=== PATIENT | female | born 1985 | race Two or more races ===

== ENCOUNTER 2021-11-26 13:30 | Inpatient (IN) | payer OTHER ==
[~2021-11-26] VITALS: Ht 162.6 cm; Wt 79.8 kg
[2021-11-26] MEDS ORDERED: CHILDREN'S ASPI81 MG PO (15:18)
[2021-11-26] MEDS ORDERED: PRENATAL TABLE1 EAC3 PO (15:19)
== END 2021-11-27 09:20 | disposition home or self-care (01) | DRG 831 ==
LOC: LDR 13:30
PROVIDERS: ADMIT Obstetrics & Gynecology Maternal & Fetal Medicine; ATTEND Obstetrics & Gynecology Maternal & Fetal Medicine
PROC: 4A1HXCZ Monitoring of Products of Conception, Cardiac Rate, External Approach (ICD-10-PCS; principal; 2021-11-26)
PROC: BY4FZZZ Ultrasonography of Third Trimester, Single Fetus (ICD-10-PCS; 2021-11-26)
DX: O98.513 Other viral diseases complicating pregnancy, third trimester (principal); U07.1 COVID-19; O46.8X3 Other antepartum hemorrhage, third trimester; Z3A.33 33 weeks gestation of pregnancy

== ENCOUNTER 2021-12-13 12:23 | Outpatient (CLI) | payer OTHER ==
[~2021-12-13 12:23] MED LIST: CHILDREN'S ASPI81 MG PO; PRENATAL TABLE1 EAC3 PO
== END 2021-12-13 13:13 | disposition home or self-care (01) ==
LOC: NST 12:23
PROVIDERS: ATTEND Obstetrics & Gynecology Maternal & Fetal Medicine
DX: Z34.83 Encounter for supervision of other normal pregnancy, third trimester (principal)

== ENCOUNTER 2022-01-03 08:45 | Inpatient (IN) | payer OTHER ==
[~2022-01-03] VITALS: Ht 162.6 cm; Wt 84.4 kg
[2022-01-09] MEDS ORDERED: FAMOTIDINE20 MG (13:15)
== END 2022-01-11 15:47 | disposition home or self-care (01) | DRG 785 ==
LOC: OB/GYN 01-08 08:45 → O/R 01-08 10:30 → OB/GYN 01-08 21:19
PROVIDERS: ADMIT Obstetrics & Gynecology Maternal & Fetal Medicine; ATTEND Obstetrics & Gynecology Maternal & Fetal Medicine
PROC: 0UB70ZZ Excision of Bilateral Fallopian Tubes, Open Approach (ICD-10-PCS; 2022-01-08)
PROC: 4A1HXCZ Monitoring of Products of Conception, Cardiac Rate, External Approach (ICD-10-PCS; 2022-01-08)
PROC: 10D00Z1 Extraction of Products of Conception, Low, Open Approach (ICD-10-PCS; principal; 2022-01-08 13:15)
DX: O34.211 Maternal care for low transverse scar from previous cesarean delivery (principal); Z3A.39 39 weeks gestation of pregnancy; Z37.0 Single live birth; Z20.822 Contact with and (suspected) exposure to COVID-19; Z30.2 Encounter for sterilization